=== PATIENT | female | born 1990 | race Caucasian/White ===

== ENCOUNTER → 2020-06-23 12:28 | Outpatient (CLI) | payer OTHER, MEDICAID, SELFPAY ==
--- NOTE | 2020-06-23 | DI.US.S_ITS ---
PROCEDURE: US THYROID INDICATIONS: CERVICAL LYMPHADENOPATHY AND THYROID TECHNIQUE: Real-time scanning was performed of the thyroid gland, with image documentation. COMPARISON: None. FINDINGS: Right: Thyroid lobe measures 4.6 x 1.4 x 1.4 cm, and is homogeneous in echotexture. Left: Thyroid lobe measures 5.2 x 1.2 x 0.9 cm, and is homogenous in echotexture. Isthmus: 3 mm thick. Multiple benign-appearing lymph nodes are noted in bilateral lower neck soft tissue. Nodule number: 1 Location: Mid pole of left thyroid lobe Size: 1.1 x 0.9 x 0.5 cm. Composition: Predominantly cystic Echogenicity: Isoechoic Shape: Wider than tall Margins: Smooth Echogenic foci: Punctate Total points: 5 ACR TI-RADS category: 4 IMPRESSION: Single moderately suspicious nodule in mid pole left thyroid lobe as described above. Continue follow-up at 1, 2, 3, and 5 years is recommended. ACR TI-RADS definitions and recommendations: TI-RADS 1 (benign): 0 points. FNA not needed. TI-RADS 2 (not suspicious): 2 points. FNA not needed. TI-RADS 3 (mildly suspicious): 3 points. * FNA if 2.5 cm or larger, follow up if 1.5 cm or larger (at 1, 3, and 5 years). TI-RADS 4 (moderately suspicious): 4-6 points. * FNA if 1.5 cm or larger, follow up if 1 cm or larger (at 1, 2, 3, and 5 years). TI-RADS 5 (highly suspicious): 7 points or more. * FNA if 1 cm or larger, follow up if 0.5 cm or larger (every year for 5 years). Dictated by: Rodney Julian M.D. on 06/23/2020 at 16:07 Approved by: Rodney Julian M.D. on 06/23/2020 at 16:09
--- NOTE | 2020-06-23 | DI.US.S_ITS ---
PROCEDURE: US PELVIC COMPLETE INDICATIONS: POLYCYSTIC OVARIAN SYNDROME TECHNIQUE: Real-time scanning was performed of the pelvic organs, with image documentation. Additional endovaginal scanning was necessary due to incomplete visualization of the adnexal and endometrial structures by transabdominal scanning. COMPARISON: None. FINDINGS: Uterus: Uterus is normal in size at 6.3 x 4.7 x 2.3 cm. The endometrium measures 4 mm in combined thickness. No gross endometrial mass or fluid is seen. Nabothian cysts are noted in endocervical canal. No discrete uterine fibroid. Ovaries: Right ovary measures 3.8 x 3.2 x 2.3 cm in size. Left ovary measures 4 x 3.1 x 2.9 cm in size. Greater than 10 follicles are seen in right ovary, greater than 12 follicles are noted in left ovary. No solid appearing ovarian lesion. Normal blood flow is seen in bilateral ovaries on color Doppler images. Other: No pathologic free abdominal or pelvic fluid. Possible debris within the urinary bladder dependent portion. Possible small ureteral seal is noted in right posterior lateral bladder wall. IMPRESSION: 1. Bilateral ovarian follicles as above. Findings meets the [place] Definition of polycystic ovaries. In the absence of ovulatory dysfunction or clinical/biochemically diagnosed hyperandrogenism, findings are non specific and do not indicate the presence of polycystic ovarian syndrome. Dictated by: Rodney Julian M.D. on 06/23/2020 at 16:03 Approved by: Rodney Julian M.D. on 06/23/2020 at 16:07
== END ==
PROVIDERS: Referring Provider Physician Assistant; Visit Provider Physician Assistant
DX: E28.2 Polycystic ovarian syndrome (principal); R59.0 Localized enlarged lymph nodes; E04.1 Nontoxic single thyroid nodule; R94.6 Abnormal results of thyroid function studies
CPT/HCPCS: 76536; 76830; 76856